=== PATIENT | female | born 2000 | race Caucasian/White ===

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

== ENCOUNTER 2021-05-14 12:41 | Emergency (ER) | payer OTHER ==
[~2021-05-14] VITALS: Ht 162.6 cm; Wt 52.2 kg
[~2021-05-14 12:41] MED LIST: Amoxicillin500 MG PO; HYDR1TAB94 PO
[2021-05-14] MEDS ORDERED: EUTHYROX25 MC1 PO (13:01)
[2021-05-14] MEDS ORDERED: CEPH500 PO (13:04)
== END 2021-05-14 13:05 | disposition home or self-care (01) ==
LOC: ER 12:41
DX: N39.0 Urinary tract infection, site not specified (principal); Z88.2 Allergy status to sulfonamides; Z79.899 Other long term (current) drug therapy
CPT/HCPCS: 99283

== ENCOUNTER 2021-06-28 15:46 | Emergency (ER) | payer OTHER ==
[~2021-06-28] VITALS: Ht 154.9 cm; Wt 48.5 kg
[~2021-06-28 15:46] MED LIST changes: +CEPH500 PO; +EUTHYROX25 MC1 PO
[2021-06-28] MEDS ORDERED: ONDA4ODT MM (16:34)
== END 2021-06-28 16:43 | disposition home or self-care (01) ==
LOC: ER 15:46
DX: U07.1 COVID-19 (principal); J45.909 Unspecified asthma, uncomplicated; Z88.2 Allergy status to sulfonamides
CPT/HCPCS: 99282

== ENCOUNTER → 2021-12-06 | Outpatient (CLI) | payer OTHER ==
[~2021-12-06] MED LIST changes: +ONDA4ODT MM
[2021-12-06 20:14] LABS: BASOPHILS ABSOLUTE AUTO 0.05 K/mm3 (0.00-0.23); BASOPHILS PERCENT AUTO 1 % (0-2); EOSINOPHILS ABSOLUTE AUTO 0.13 K/mm3 (0.00-0.68); EOSINOPHILS PERCENT AUTO 2 % (0-6); Hematocrit 39.5 % (33.0-51.0); Hemoglobin 13.1 g/dL (11.5-16.0); IMMATURE GRAN PERCENT AUTO 0 % (0-1); LYMPHOCYTES ABSOLUTE AUTO 1.89 K/mm3 (0.84-5.20); LYMPHOCYTES PERCENT AUTO 35 % (21-46); MONOCYTES ABSOLUTE AUTO 0.43 K/mm3 (0.16-1.47); MONOCYTES PERCENT AUTO 8 % (4-13); Mean Corpuscular HGB 28.8 pg (26.0-34.0); Mean Corpuscular HGB Conc 33.2 g/dL (31.5-36.5); Mean Corpuscular Volume 87 fL (80-100); Mean Platelet Volume 11.3 fL (9.1-12.4); NEUTROPHILS ABSOLUTE AUTO 2.85 K/mm3 (1.96-9.15); NEUTROPHILS PERCENT AUTO 53 % (41-73); Platelet Count 289 K/mm3 (150-400); RDW Coefficient Variation 12.1 % (11.7-14.2); RDW Standard Deviation 38.5 fL (35.1-46.3); Red Blood Cell Count 4.55 M/mm3 (3.80-5.20); White Blood Cell Count 5.35 K/mm3 (4.00-11.30)
[2021-12-06 20:25] LABS: Free Thyroxine 0.94 ng/dL (0.70-1.60); Thyroid Stimulating Hormone 1.78 uIU/mL (0.360-4.800)
== END | disposition home or self-care (01) ==
LOC: LAB SHORT 18:43
PROVIDERS: Family Medicine
DX: F41.8 Other specified anxiety disorders (principal); E03.9 Hypothyroidism, unspecified
CPT/HCPCS: 82306; 84439; 84443; 85025